=== PATIENT | male | born 2000 | race African-American/Black ===

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

== ENCOUNTER 2022-02-14 22:54 | Emergency (ER) | payer OTHER ==
[2022-02-14 23:23] VITALS: RESP 16; TEMP 99.2
[2022-02-14] MEDS ORDERED: TOBRAMYCIN 0.3% OPHTH OINT 3.5 GM TUBE RIGHT EYE STA (23:32)
--- NOTE | 2022-02-14 23:34 | ED ---
Eye Problem HPI - General Chief complaint: Eye Problems Stated complaint: Right eye problem Time Seen by Provider: 02/14/22 23:26 Source: patient, RN notes reviewed Mode of arrival: ambulatory Limitations: no limitations - History of Present Illness Initial comments: She complains of right eye redness and some discharge in the morning with no effect and visual acuity for the past 3 days. He is describing some scratchy type feeling. Also has a scratchy throat. No left eye symptomology. Patient denies any foreign body. Patient denies any injury. No headache, no fever or chills, no changes in vision or hearing, no sore throat or difficulty with speech, no neck pain, no chest pain or shortness of breath, no abdominal pain, no nausea or vomiting, no changes in urination or bowel movements, no numbness or tingling, no extremity pain, no skin rashes or lesions. MD chief complaint: eye redness - Related Data Previous Rx's Medication Instructions Recorded Ibuprofen [Motrin] 600 mg PO Q8HR PRN #20 tab 08/26/20 Ibuprofen [Motrin] 600 mg PO Q6HR PRN 10 Days #40 tab 09/22/20 Allergies Allergy/AdvReac Type Severity Reaction Status Date / Time No Known Allergies Allergy Verified 02/14/22 23:20 Review of Systems ROS Statement: Those systems with pertinent positive or pertinent negative responses have been documented in the HPI. ROS Other: All systems not noted in ROS Statement are negative. Past Medical History Past Medical History: No Reported History History of Any Multi-Drug Resistant Organisms: None Reported Past Surgical History: No Surgical Hx Reported Past Psychological History: Depression Smoking Status: Current every day smoker Past Alcohol Use History: Occasional Past Drug Use History: Marijuana General Exam Limitations: no limitations General appearance: alert, in no apparent distress Head exam: Present: atraumatic, normocephalic, normal inspection Eye exam: Present: normal appearance, PERRL, EOMI, conjunctival injection (Right eye), other (Some clear discharge from the right eye with some evidence of crusting. No foreign body. Eyelids everted, no foreign body. Visual acuity is normal). Absent: scleral icterus, periorbital swelling Pupils: Present: normal accommodation ENT exam: Present: normal exam, normal oropharynx, mucous membranes moist, TM's normal bilaterally, normal external ear exam, other (Clear postnasal drainage with some cobblestoning, edematous turbinates without evidence of purulent drainage). Absent: mucous membranes dry Neck exam: Present: normal inspection. Absent: tenderness, meningismus, lymphadenopathy Respiratory exam: Present: normal lung sounds bilaterally. Absent: respiratory distress, wheezes, rales, rhonchi, stridor Cardiovascular Exam: Present: regular rate, normal rhythm, normal heart sounds. Absent: systolic murmur, diastolic murmur, rubs, gallop, clicks GI/Abdominal exam: Present: soft, normal bowel sounds. Absent: distended, tenderness, guarding, rebound, rigid Extremities exam: Present: normal inspection, full ROM, normal capillary refill. Absent: tenderness, pedal edema, joint swelling, calf tenderness Back exam: Present: normal inspection Neurological exam: Present: alert, oriented X3, CN II-XII intact Psychiatric exam: Present: normal affect, normal mood Skin exam: Present: warm, dry, intact, normal color. Absent: rash Course Vital Signs 02/14/22 23:21 Temperature 99.2 F Pulse Rate 89 Respiratory 16 Rate Blood Pressure 142/79 O2 Sat by Pulse 100 Oximetry Medical Decision Making - Medical Decision Making Symptomology most consistent with a viral conjunctivitis and ALLERGIC rhinitis. We'll treat with IV antiemetic ointment essentially for prophylaxis. [id number] antihistamines for ALLERGIC rhinitis. Patient no distress otherwise. Does not appear to be ill or toxic. Patient was told to return to the ER for any signs or symptoms worsen. Told to return immediately if any other problems arise. All questions answered. Treatment plan discussed. Patient in agreement Every effort has been made to ensure accuracy of this dictation. However, due to the limitations of electronic medical records and dictation devices, errors in charting still occur. [employer] Driver Dr. Hernandez Disposition Clinical Impression: Viral conjunctivitis, Allergic rhinitis Disposition: HOME SELF-CARE Condition: Good Instructions (If sedation given, give patient instructions): Tobramycin (Into the eye), Allergic Rhinitis (ED), Conjunctivitis (ED) Additional Instructions: Tobramycin eye ointment, 1 cm to the affected eye every 6 hours for 3-5 days. [id number] antihistamines for ALLERGIES such as Zyrtec or Claritin. Follow-up with your regular physician as directed. Return to the ER immediately if any symptoms worsen, new symptoms arise, or any other problems develop. Is patient prescribed a controlled substance at d/c from ED?: No Referrals: Mike Zee MD [STAFF PHYSICIAN] - 1-2 days Time of Disposition: 23:33
[2022-02-15 00:09] VITALS: BP 133/65; PULSE 70
== END 2022-02-15 00:10 | disposition home or self-care (01) ==
LOC: EC 22:54
DX: B30.9 Viral conjunctivitis, unspecified (principal); J30.9 Allergic rhinitis, unspecified; F17.200 Nicotine dependence, unspecified, uncomplicated
CPT/HCPCS: 99283

== ENCOUNTER → 2022-03-09 | Outpatient (CLI) | payer OTHER ==
--- NOTE | 2022-03-09 12:36 | US ---
EXAMINATION TYPE: US liver DATE OF EXAM: 03/09/2022 COMPARISON: NONE CLINICAL HISTORY: 21-year-old male R17 jaundice. Elevated bilirubin for years, no symptoms TECHNIQUE: Multiple sonographic images of the right upper quadrant are obtained. FINDINGS: EXAM MEASUREMENTS: Liver Length: 16.5 cm Gallbladder Wall: 0.1 cm CBD: 0.4 cm Right Kidney: 9.8 x 5.3 x 4.9 cm Pancreas: wnl Liver: wnl Gallbladder: fold seen. No abnormal distention, wall thickening, pericholecystic fluid, or shadowing calculi. Evidence for sonographic Zamudio's sign: no CBD: wnl Right Kidney: wnl IMPRESSION: Unremarkable sonographic examination of the right upper quadrant. No gallstones or biliary ductal dil atation.
== END | disposition home or self-care (01) ==
LOC: RADUSWWP 08:20
PROVIDERS: ATTEND Family Medicine
DX: R17 Unspecified jaundice (principal)
CPT/HCPCS: 76705